=== PATIENT | male | born 1940 | race Caucasian/White ===

== ENCOUNTER 2018-05-01 11:38 | Inpatient (IN) | payer BC ==
[~2018-05-01] VITALS: Ht 177.8 cm; Wt 72.1 kg
[2018-05-01 11:43] VITALS: BP_SYST 91
[2018-05-01] MEDS ORDERED: NACL 0.9% 1,000 ML IV ONE (12:05)
[2018-05-01 12:53] LABS: HEMATOCRIT 42.4 % (36-54); HEMOGLOBIN 14.1 g/dL (14.0-18.0); MEAN CORPUSCULAR HEMOGLOBIN 30 pg (27-31); MEAN CORPUSCULAR HGB CONC 33 % (32-36); MEAN CORPUSCULAR VOLUME 89 fL (79.0-98.0); RED BLOOD CELL COUNT(AUTO) 4.76 MIL/uL (4.2-6.2); RED CELL DISTRIBUTION WIDTH 12.1 % (9.0-15.0); WHITE BLOOD COUNT (AUTO) 10.4 K/uL (4.8-10.8)
[2018-05-01 12:54] LABS: ANION GAP 13 (5-15); BASOPHILS % (AUTO) 0.5 % (0.0-2.0); CALCIUM 9.5 mg/dL (8.4-11.0); CHLORIDE 98 mmol/L (98-107); CREATININE 3.28 mg/dL (0.55-1.30); EOSINOPHILS % (AUTO) 0.7 % (0.0-4.0); GLUCOSE 147 mg/dL (70-99); LYMPHOCYTES % (AUTO) 9.4 % (20.5-51.5); NEUTROPHILS # (AUTO) 8.5 K/uL (1.8-7.7); NEUTROPHILS % (AUTO) 82.4 % (40.0-70.0); PLATELET COUNT (AUTO) 315 K/uL (130-430); POTASSIUM 4.3 mmol/L (3.5-5.1); SODIUM SERUM 136 mmol/L (136-145); UREA NITROGEN, BLOOD 58 mg/dL (8-21)
[2018-05-01 12:55] LABS: BASOPHILS # (AUTO) 0.1 K/uL (0.0-0.2); EOSINOPHILS # (AUTO) 0.1 K/uL (0.0-0.4); MONOCYTES # (AUTO) 0.7 K/uL (0.0-1.0)
[2018-05-01 12:58] LABS: ALANINE AMINOTRANSFERASE 20 U/L (12-78); ALBUMIN 3.2 g/dL (3.4-4.8); ASPARTATE AMINOTRANSFERASE 17 U/L (10-37); LIPASE 367 U/L (73-393); TOTAL BILIRUBIN 0.4 mg/dL (0.0-1.0)
[2018-05-01 14:25] LABS: BILIRUBIN,URINE 2+ (NEGATIVE); BLOOD, URINE NEGATIVE (NEGATIVE); CLARITY/URINE SL HAZY (CLEAR); COLOR,URINE AMBER (YELLOW); GLUCOSE,URINE NEGATIVE (NEGATIVE); KETONES,URINE 1+ (NEGATIVE); LEUKOCYTE ESTERASE ,URINE NEGATIVE (NEGATIVE); NITRITE, URINE NEGATIVE (NEGATIVE); PROTEIN URINE 1+ (NEGATIVE); UROBILINOGEN,URINE 0.2 (0.2-1.0)
[2018-05-01] MEDS ORDERED: BUDE6HFA INH (14:36)
[2018-05-01] MEDS ORDERED: BENA20TA2 PO (14:36)
[2018-05-01] MEDS ORDERED: GLIP5TAB13 PO (14:36)
[2018-05-01] MEDS ORDERED: LOVA20TA2 PO (14:43)
[2018-05-01] MEDS ORDERED: AMYL1CAP56 PO (14:43)
[2018-05-01] MEDS ORDERED: ALLO100T PO (14:43)
[2018-05-01] MEDS ORDERED: METF1000 PO (14:43)
[2018-05-01] MEDS ORDERED: HYDR-1189 PO (14:43)
[2018-05-01] MEDS ORDERED: NEU300 PO (14:43)
[2018-05-01] MEDS ORDERED: TEMA30CA5 PO (14:43)
[2018-05-01] MEDS ORDERED: BUPR75TA20 PO (14:43)
[2018-05-01] MEDS ORDERED: ALFU10TA19 PO (14:43)
[2018-05-01 14:53] LABS: BACTERIA,URINE FEW /HPF (None Seen); RBC,URINE 0-3 /HPF (0-3); WBC,URINE 0-3 /HPF (0-3)
[2018-05-01 14:55] LABS: MUCUS,URINE 1+ /LPF (None Seen)
[2018-05-01 15:35] VITALS: BP_SYST 126
[2018-05-01] MEDS ORDERED: METOCLOPRAMIDE HCL 10 MG/2 ML VIAL IVP PRN (16:00)
[2018-05-01] MEDS ORDERED: ONDANSETRON HCL 4 MG/2 ML VIAL IVP PRN (16:00)
[2018-05-01] MEDS: MORPHINE 2 MG/ML INJ. SYRINGE IVP PRN (17:00)
[2018-05-01] MEDS: D5NS 1,000 ML IV SCH (17:02)
[2018-05-01] MEDS ORDERED: DEXTROSE 50% JECT 50 ML DISP.SYRIN IVP PRN (17:15)
[2018-05-01 20:10] VITALS: BP_SYST 146
[2018-05-01] MEDS: MORPHINE 4 MG/ML INJ. SYRINGE IVP PRN (21:08)
[2018-05-01] MEDS: INSULIN REGULAR, HUMAN 100 UNITS/ML, 10 ML VIAL (novoLIN R) SUBCUT PRN (21:15)
[2018-05-02 00:05] VITALS: BP_SYST 152
[2018-05-02] MEDS: MORPHINE 4 MG/ML INJ. SYRINGE IVP PRN ×5 (01:25→21:08)
[2018-05-02] MEDS: D5NS 1,000 ML IV SCH ×3 (01:29→15:53)
[2018-05-02] MEDS: INSULIN REGULAR, HUMAN 100 UNITS/ML, 10 ML VIAL (novoLIN R) SUBCUT PRN ×2 (06:20→17:42)
[2018-05-02 06:57] LABS: BASOPHILS # (AUTO) 0.1 K/uL (0.0-0.2); EOSINOPHILS # (AUTO) 0.1 K/uL (0.0-0.4); HEMOGLOBIN 14.2 g/dL (14.0-18.0); RED CELL DISTRIBUTION WIDTH 12.1 % (9.0-15.0); WHITE BLOOD COUNT (AUTO) 9.4 K/uL (4.8-10.8)
[2018-05-02 07:07] LABS: ANION GAP 9 (5-15); CALCIUM 9.2 mg/dL (8.4-11.0); CHLORIDE 103 mmol/L (98-107); CREATININE 2.09 mg/dL (0.55-1.30); GLUCOSE 164 mg/dL (70-99); POTASSIUM 4.3 mmol/L (3.5-5.1); SODIUM SERUM 139 mmol/L (136-145); UREA NITROGEN, BLOOD 42 mg/dL (8-21)
[2018-05-02 07:16] LABS: ALANINE AMINOTRANSFERASE 17 U/L (12-78); ALBUMIN 3.1 g/dL (3.4-4.8); ASPARTATE AMINOTRANSFERASE 18 U/L (10-37); TOTAL BILIRUBIN 0.4 mg/dL (0.0-1.0)
[2018-05-02 07:21] LABS: BASOPHILS % (AUTO) 0.9 % (0.0-2.0); EOSINOPHILS % (AUTO) 1.2 % (0.0-4.0); HEMATOCRIT 41.6 % (36-54); LYMPHOCYTES # (AUTO) 1.2 K/uL (1.0-5.5); LYMPHOCYTES % (AUTO) 13.2 % (20.5-51.5); MEAN CORPUSCULAR HEMOGLOBIN 31 pg (27-31); MEAN CORPUSCULAR HGB CONC 34 % (32-36); MEAN CORPUSCULAR VOLUME 91 fL (79.0-98.0); MONOCYTES # (AUTO) 0.8 K/uL (0.0-1.0); MONOCYTES % (AUTO) 8.3 % (1.7-9.3); NEUTROPHILS # (AUTO) 7.2 K/uL (1.8-7.7); NEUTROPHILS % (AUTO) 76.4 % (40.0-70.0); PLATELET COUNT (AUTO) 354 K/uL (130-430); RED BLOOD CELL COUNT(AUTO) 4.59 MIL/uL (4.2-6.2)
[2018-05-02 08:00] VITALS: BP_SYST 132
[2018-05-02 12:30] VITALS: BP_SYST 132
[2018-05-02 16:25] VITALS: BP_SYST 146
[2018-05-02 20:00] VITALS: BP_SYST 136
[2018-05-03] VITALS (7 sets, daily range): BP systolic 134–162
[2018-05-03] MEDS: MORPHINE 4 MG/ML INJ. SYRINGE IVP PRN (01:29)
[2018-05-03] MEDS: D5NS 1,000 ML IV SCH ×3 (03:54→16:23)
[2018-05-03] MEDS: MORPHINE 2 MG/ML INJ. SYRINGE IVP PRN ×3 (05:07→16:16)
[2018-05-03] MEDS: INSULIN REGULAR, HUMAN 100 UNITS/ML, 10 ML VIAL (novoLIN R) SUBCUT PRN (06:36)
[2018-05-03 07:06] LABS: PROTHROMBIN TIME 10.3 SECS (9.5-12.5)
[2018-05-03] MEDS: fentaNYL CITRATE/PF 100 MCG/2 ML AMP ONE ×3 (07:27→07:32)
[2018-05-03] MEDS: MIDAZOLAM HCL 5 MG/5 ML VIAL ONE ×3 (07:27→07:34)
[2018-05-03] MEDS ORDERED: SIMETHICONE 40 MG/0.6 ML ML ONE (07:27)
[2018-05-03] MEDS ORDERED: BENZOCAINE 20% 0.5mL UD SPRAY MM ONE (10:45)
[2018-05-03] MEDS ORDERED: cloNIDine HCL 0.1 MG TABLET PO PRN (12:30)
== END 2018-05-03 21:27 | disposition home or self-care (01) | DRG 683 ==
LOC: SED 11:38 → SMU 15:05
PROVIDERS: ADMIT Internal Medicine Hospice and Palliative Medicine; ATTEND Internal Medicine Hospice and Palliative Medicine
PROC: 0DB68ZX Excision of Stomach, Via Natural or Artificial Opening Endoscopic, Diagnostic (ICD-10-PCS; principal; 2018-05-03 07:15)
DX: N17.0 Acute kidney failure with tubular necrosis (principal); K86.1 Other chronic pancreatitis; E46 Unspecified protein-calorie malnutrition; E11.9 Type 2 diabetes mellitus without complications; R10.9 Unspecified abdominal pain; J44.9 Chronic obstructive pulmonary disease, unspecified; K31.7 Polyp of stomach and duodenum; I10 Essential (primary) hypertension; E78.00 Pure hypercholesterolemia, unspecified; Z88.0 Allergy status to penicillin; Z79.899 Other long term (current) drug therapy; Z90.49 Acquired absence of other specified parts of digestive tract; Z68.22 Body mass index [BMI] 22.0-22.9, adult
CPT/HCPCS: 36415; 43239; 71045; 76700-TC; 80053; 81000-TC; 82787; 82962; 83605; 83690-TC; 85025; 85610-TC; 88305; 88312; 88313; 96360; 99285; J2250; J2270; J2405; J3010; J7042

== ENCOUNTER 2022-11-28 08:53 | Inpatient (IN) | payer BC ==
[~2022-11-28] VITALS: Ht 177.8 cm; Wt 84.8 kg
[~2022-11-28 08:53] MED LIST: ALFU10TA10 PO; ALLO100T PO; AMYL1CAP56 PO; BENA-6 PO; BUDE6HFA INH; BUPR75TA20 PO; GLIP5TAB13 PO; HYDR-3919 PO; LOVA20TA2 PO; METF1000 PO; NEU300 PO; TEMA30CA5 PO
[2022-11-28 08:55] VITALS: BP_SYST 137
[2022-11-28] MEDS ORDERED: methylPREDNISolone SOD SUCC/PF 62.5 MG/ML VIAL IVP ONE (09:00)
[2022-11-28] MEDS ORDERED: IPRATROPIUM/ALBUTEROL SULFATE 3 ML AMPUL.NEB (DUONEB) INH ONE (09:00)
[2022-11-28 09:33] LABS: BILIRUBIN,URINE NEGATIVE (NEGATIVE); BLOOD, URINE 3+ (NEGATIVE); CLARITY/URINE SL CLOUDY (CLEAR); COLOR,URINE YELLOW (YELLOW); GLUCOSE,URINE NEGATIVE (NEGATIVE); KETONES,URINE 1+ (NEGATIVE); LEUKOCYTE ESTERASE ,URINE 1+ (NEGATIVE); NITRITE, URINE POSITIVE (NEGATIVE); PH,URINE 6.5 (5.0-8.0); PROTEIN URINE 1+ (NEGATIVE); UROBILINOGEN,URINE 0.2 (0.2-1.0)
[2022-11-28 09:44] LABS: BACTERIA,URINE MANY /HPF (None Seen); MUCUS,URINE 1+ /LPF (None Seen)
[2022-11-28 09:47] LABS: ANION GAP 10 (5-15); CALCIUM 9.1 mg/dL (8.4-11.0); CHLORIDE 101 mmol/L (98-107); CREATININE 1.61 mg/dL (0.55-1.30); GLUCOSE 206 mg/dL (70-99); UREA NITROGEN, BLOOD 33 mg/dL (8-21)
[2022-11-28 09:54] LABS: ALANINE AMINOTRANSFERASE 39 U/L (12-78); ASPARTATE AMINOTRANSFERASE 23 U/L (10-37); TOTAL BILIRUBIN 1.2 mg/dL (0.0-1.0)
[2022-11-28] MEDS ORDERED: cefTRIAXone 1 GM VIAL ONE (10:41)
[2022-11-28] MEDS ORDERED: OSELTAMIVIR PHOSPHATE 75 MG CAPSULE PO ONE (10:45)
[2022-11-28] MEDS ORDERED: NACL 0.9% 1,000 ML IV ONE (10:45)
[2022-11-28] MEDS ORDERED: cefTRIAXone 1 GM in D5W 50 ML IV ONE (10:45)
[2022-11-28 10:58] LABS: BASOPHILS % (AUTO) 0.1 % (0.0-2.0); EOSINOPHILS % (AUTO) 0.1 % (0.0-4.0); HEMATOCRIT 43.4 % (36-54); HEMOGLOBIN 14.8 g/dL (14.0-18.0); LYMPHOCYTES # (AUTO) 0.6 K/uL (1.0-5.5); LYMPHOCYTES % (AUTO) 3.7 % (20.5-51.5); MEAN CORPUSCULAR HEMOGLOBIN 31 pg (27-31); MEAN CORPUSCULAR HGB CONC 34 % (32-36); MEAN CORPUSCULAR VOLUME 92 fL (79.0-98.0); MONOCYTES # (AUTO) 1.2 K/uL (0.0-1.0); MONOCYTES % (AUTO) 6.8 % (1.7-9.3); NEUTROPHILS # (AUTO) 15.6 K/uL (1.8-7.7); NEUTROPHILS % (AUTO) 89.3 % (40.0-70.0); PLATELET COUNT (AUTO) 125 K/uL (130-430); RED BLOOD CELL COUNT(AUTO) 4.72 MIL/uL (4.2-6.2); RED CELL DISTRIBUTION WIDTH 14.2 % (9.0-15.0); WHITE BLOOD COUNT (AUTO) 17.5 K/uL (4.8-10.8)
[2022-11-28 12:00] VITALS: BP_SYST 137
[2022-11-28] MEDS ORDERED: ACETAMINOPHEN 325 MG TABLET PO PRN ×2 (12:15→12:45)
[2022-11-28] MEDS ORDERED: ONDANSETRON HCL 4 MG/2 ML VIAL IVP PRN (12:15)
[2022-11-28] MEDS ORDERED: HYDROcodone/ACETAMIN 5-325 MG TAB (NORCO/ VICODIN) PO PRN (12:15)
[2022-11-28] MEDS ORDERED: NALOXONE HCL 0.4 MG/ML AMP (NARCAN) IVP PRN ×2 (12:15)
[2022-11-28] MEDS: D5/0.45 NS 1,000 ML IV SCH ×2 (12:57→22:13)
[2022-11-28] MEDS ORDERED: IPRA3AMP9 INH (13:28)
[2022-11-28] MEDS ORDERED: OMEP40CA20 PO (13:28)
[2022-11-28] MEDS ORDERED: MULT-1117 PO (13:28)
[2022-11-28] MEDS ORDERED: IRBE150T48 PO (13:28)
[2022-11-28] MEDS ORDERED: AMLO2.5T2 PO (13:28)
[2022-11-28 14:18] VITALS: BP_SYST 139
[2022-11-28] MEDS: AZITHROMYCIN 500 MG in NS 250 ML IV SCH (15:43)
[2022-11-28] MEDS: buPROPion HCL 75 MG TABLET PO SCH ×2 (15:43→22:11)
[2022-11-28] MEDS: cefTRIAXone 1 GM IVPB PREMIX 50 ML IV SCH (15:43)
[2022-11-28] MEDS: INSULIN REGULAR, HUMAN 100 UNITS/ML, 3 ML VIAL (humuLIN R) SUBCUT PRN ×2 (17:10→22:15)
[2022-11-28 21:00] VITALS: BP_SYST 137
[2022-11-28] MEDS ORDERED: BENAZEPRIL HCL 20 MG TABLET (LOTENSIN) PO SCH (21:00)
[2022-11-28] MEDS ORDERED: GABAPENTIN 300 MG CAPSULE PO SCH (21:00)
[2022-11-28] MEDS ORDERED: LOVASTATIN 20 MG TABLET PO SCH (21:00)
[2022-11-28] MEDS: IPRATROPIUM BROM 0.5 MG/2.5 ML VIAL.NEB (ATROVENT) INH SCH ×2 (21:39→23:29)
[2022-11-28] MEDS: ALBUTEROL SULFATE 0.083% 2.5 MG/3 ML VIAL.NEB INH SCH ×2 (21:39→23:28)
[2022-11-28] MEDS: METHYLPREDNISOLONE SOD SUCC 40 MG/ML VIAL IVP SCH (22:10)
[2022-11-28] MEDS: GABAPENTIN 300 MG CAPSULE PO SCH (22:10)
[2022-11-28] MEDS: ATORVASTATIN 10 MG TABLET PO SCH (22:11)
[2022-11-28] MEDS: TEMAZEPAM 15 MG CAPSULE PO SCH (22:11)
[2022-11-28] MEDS: lisinopriL 20 MG TABLET PO SCH (22:12)
[2022-11-29] MEDS: ALBUTEROL SULFATE 0.083% 2.5 MG/3 ML VIAL.NEB INH SCH ×4 (04:04→15:57)
[2022-11-29] MEDS: IPRATROPIUM BROM 0.5 MG/2.5 ML VIAL.NEB (ATROVENT) INH SCH ×4 (04:04→15:57)
[2022-11-29 04:37] VITALS: BP_SYST 104
[2022-11-29] MEDS: INSULIN REGULAR, HUMAN 100 UNITS/ML, 3 ML VIAL (humuLIN R) SUBCUT PRN ×4 (06:13→21:15)
[2022-11-29 06:35] LABS: BASOPHILS % (AUTO) 0.1 % (0.0-2.0); HEMATOCRIT 36.6 % (36-54); HEMOGLOBIN 12.6 g/dL (14.0-18.0); LYMPHOCYTES # (AUTO) 0.5 K/uL (1.0-5.5); LYMPHOCYTES % (AUTO) 2.8 % (20.5-51.5); MEAN CORPUSCULAR HEMOGLOBIN 31 pg (27-31); MEAN CORPUSCULAR HGB CONC 35 % (32-36); MEAN CORPUSCULAR VOLUME 90 fL (79.0-98.0); MONOCYTES # (AUTO) 0.5 K/uL (0.0-1.0); MONOCYTES % (AUTO) 3.3 % (1.7-9.3); NEUTROPHILS # (AUTO) 15.1 K/uL (1.8-7.7); NEUTROPHILS % (AUTO) 93.8 % (40.0-70.0); PLATELET COUNT (AUTO) 129 K/uL (130-430); RED BLOOD CELL COUNT(AUTO) 4.06 MIL/uL (4.2-6.2); RED CELL DISTRIBUTION WIDTH 14.3 % (9.0-15.0); WHITE BLOOD COUNT (AUTO) 16.1 K/uL (4.8-10.8)
[2022-11-29 07:12] LABS: ALANINE AMINOTRANSFERASE 31 U/L (12-78); ANION GAP 9 (5-15); ASPARTATE AMINOTRANSFERASE 16 U/L (10-37); CALCIUM 8.4 mg/dL (8.4-11.0); CHLORIDE 102 mmol/L (98-107); CREATININE 1.83 mg/dL (0.55-1.30); GLUCOSE 229 mg/dL (70-99); PHOSPHORUS 2.5 mg/dL (2.7-4.5); TOTAL BILIRUBIN 0.4 mg/dL (0.0-1.0); UREA NITROGEN, BLOOD 40 mg/dL (8-21)
[2022-11-29 08:00] VITALS: BP_SYST 101
[2022-11-29] MEDS ORDERED: NON-FORMULARY MEDICATION (Alfuzosin Hcl 10 MG) PO SCH (09:00)
[2022-11-29] MEDS: LIPASE/PROTEASE/AMYLASE 1 CAP PO SCH ×4 (09:51→21:11)
[2022-11-29] MEDS: GABAPENTIN 300 MG CAPSULE PO SCH ×3 (09:51→21:12)
[2022-11-29] MEDS: ALLOPURINOL 100 MG TABLET (ZYLOPRIM) PO SCH (09:52)
[2022-11-29] MEDS: buPROPion HCL 75 MG TABLET PO SCH ×3 (09:52→21:11)
[2022-11-29] MEDS: D5/0.45 NS 1,000 ML IV SCH ×2 (09:53→17:02)
[2022-11-29] MEDS: METHYLPREDNISOLONE SOD SUCC 40 MG/ML VIAL IVP SCH ×2 (10:31→21:11)
[2022-11-29 12:20] VITALS: BP_SYST 131
[2022-11-29] MEDS: cefTRIAXone 1 GM IVPB PREMIX 50 ML IV SCH (15:28)
[2022-11-29] MEDS: AZITHROMYCIN 500 MG in NS 250 ML IV SCH (15:29)
[2022-11-29] MEDS ORDERED: BENZONATATE 100 MG CAPSULE (TESSALON) PO PRN (15:30)
[2022-11-29 15:45] VITALS: BP_SYST 143
[2022-11-29] MEDS: IPRATROPIUM/ALBUTEROL SULFATE 3 ML AMPUL.NEB (DUONEB) INH SCH ×2 (19:16→23:00)
[2022-11-29 20:05] VITALS: BP_SYST 144
[2022-11-29] MEDS: OSELTAMIVIR PHOSPHATE 6 MG/1 ML, 60 ML SUSP PO SCH (21:12)
[2022-11-29] MEDS: lisinopriL 20 MG TABLET PO SCH (21:13)
[2022-11-29] MEDS: TEMAZEPAM 15 MG CAPSULE PO SCH (21:13)
[2022-11-29] MEDS: ATORVASTATIN 10 MG TABLET PO SCH (21:13)
[2022-11-30 00:10] VITALS: BP_SYST 108
[2022-11-30] MEDS: IPRATROPIUM/ALBUTEROL SULFATE 3 ML AMPUL.NEB (DUONEB) INH SCH ×5 (03:00→19:38)
[2022-11-30] MEDS: D5/0.45 NS 1,000 ML IV SCH ×2 (03:15→16:45)
[2022-11-30] MEDS: LIPASE/PROTEASE/AMYLASE 1 CAP PO SCH ×4 (06:28→21:11)
[2022-11-30] MEDS: INSULIN REGULAR, HUMAN 100 UNITS/ML, 3 ML VIAL (humuLIN R) SUBCUT PRN ×4 (06:30→21:09)
[2022-11-30] MEDS: IPRATROPIUM BROM 0.5 MG/2.5 ML VIAL.NEB (ATROVENT) INH SCH ×3 (07:00→19:00)
[2022-11-30] MEDS: ALBUTEROL SULFATE 0.083% 2.5 MG/3 ML VIAL.NEB INH SCH ×3 (07:00→19:00)
[2022-11-30 07:37] LABS: ALANINE AMINOTRANSFERASE 34 U/L (12-78); ALBUMIN 3.3 g/dL (3.4-4.8); ANION GAP 10 (5-15); ASPARTATE AMINOTRANSFERASE 21 U/L (10-37); CALCIUM 8.7 mg/dL (8.4-11.0); CHLORIDE 100 mmol/L (98-107); GLUCOSE 168 mg/dL (70-99); PHOSPHORUS 4.4 mg/dL (2.7-4.5); TOTAL BILIRUBIN 0.3 mg/dL (0.0-1.0); UREA NITROGEN, BLOOD 53 mg/dL (8-21)
[2022-11-30 07:49] LABS: BASOPHILS # (AUTO) 0.1 K/uL (0.0-0.2); BASOPHILS % (AUTO) 0.2 % (0.0-2.0); EOSINOPHILS % (AUTO) 0.2 % (0.0-4.0); HEMATOCRIT 39.2 % (36-54); HEMOGLOBIN 13.1 g/dL (14.0-18.0); LYMPHOCYTES # (AUTO) 0.9 K/uL (1.0-5.5); LYMPHOCYTES % (AUTO) 4.3 % (20.5-51.5); MEAN CORPUSCULAR HEMOGLOBIN 31 pg (27-31); MEAN CORPUSCULAR HGB CONC 34 % (32-36); MEAN CORPUSCULAR VOLUME 92 fL (79.0-98.0); MONOCYTES # (AUTO) 1.2 K/uL (0.0-1.0); MONOCYTES % (AUTO) 5.9 % (1.7-9.3); NEUTROPHILS # (AUTO) 18.7 K/uL (1.8-7.7); NEUTROPHILS % (AUTO) 89.4 % (40.0-70.0); PLATELET COUNT (AUTO) 166 K/uL (130-430); RED BLOOD CELL COUNT(AUTO) 4.25 MIL/uL (4.2-6.2); RED CELL DISTRIBUTION WIDTH 14.4 % (9.0-15.0); WHITE BLOOD COUNT (AUTO) 20.9 K/uL (4.8-10.8)
[2022-11-30 08:00] VITALS: BP_SYST 112
[2022-11-30] MEDS: GABAPENTIN 300 MG CAPSULE PO SCH ×3 (10:31→21:10)
[2022-11-30] MEDS: METHYLPREDNISOLONE SOD SUCC 40 MG/ML VIAL IVP SCH (10:31)
[2022-11-30] MEDS: ALLOPURINOL 100 MG TABLET (ZYLOPRIM) PO SCH (10:32)
[2022-11-30] MEDS: buPROPion HCL 75 MG TABLET PO SCH ×3 (10:32→21:10)
[2022-11-30] MEDS: OSELTAMIVIR PHOSPHATE 6 MG/1 ML, 60 ML SUSP PO SCH ×2 (10:32→21:11)
[2022-11-30 12:10] VITALS: BP_SYST 113
[2022-11-30] MEDS: ALBUMIN HUMAN 25% 50 ML IV SCH ×2 (12:48→16:43)
[2022-11-30 15:20] VITALS: BP_SYST 143
[2022-11-30] MEDS: AZITHROMYCIN 500 MG in NS 250 ML IV SCH (16:43)
[2022-11-30] MEDS: cefTRIAXone 1 GM IVPB PREMIX 50 ML IV SCH (16:43)
[2022-11-30 20:08] VITALS: BP_SYST 144
[2022-11-30 20:09] VITALS: BP_SYST 144
[2022-11-30] MEDS: TEMAZEPAM 15 MG CAPSULE PO SCH (21:10)
[2022-11-30] MEDS: ATORVASTATIN 10 MG TABLET PO SCH (21:10)
[2022-11-30] MEDS: lisinopriL 20 MG TABLET PO SCH (21:11)
[2022-12-01 02:04] VITALS: BP_SYST 146
[2022-12-01] MEDS: IPRATROPIUM BROM 0.5 MG/2.5 ML VIAL.NEB (ATROVENT) INH SCH ×4 (03:00→15:00)
[2022-12-01] MEDS: IPRATROPIUM/ALBUTEROL SULFATE 3 ML AMPUL.NEB (DUONEB) INH SCH ×4 (03:00→15:18)
[2022-12-01] MEDS: D5/0.45 NS 1,000 ML IV SCH ×2 (05:29→14:29)
[2022-12-01] MEDS: INSULIN REGULAR, HUMAN 100 UNITS/ML, 3 ML VIAL (humuLIN R) SUBCUT PRN ×2 (06:31→12:23)
[2022-12-01] MEDS: LIPASE/PROTEASE/AMYLASE 1 CAP PO SCH ×3 (06:31→17:49)
[2022-12-01] MEDS: ALBUTEROL SULFATE 0.083% 2.5 MG/3 ML VIAL.NEB INH SCH ×3 (07:00→15:00)
[2022-12-01 07:09] LABS: BASOPHILS % (AUTO) 0.1 % (0.0-2.0); EOSINOPHILS % (AUTO) 0.1 % (0.0-4.0); HEMATOCRIT 36.5 % (36-54); HEMOGLOBIN 12.6 g/dL (14.0-18.0); LYMPHOCYTES # (AUTO) 0.7 K/uL (1.0-5.5); LYMPHOCYTES % (AUTO) 7.5 % (20.5-51.5); MEAN CORPUSCULAR HEMOGLOBIN 31 pg (27-31); MEAN CORPUSCULAR HGB CONC 35 % (32-36); MEAN CORPUSCULAR VOLUME 91 fL (79.0-98.0); MONOCYTES # (AUTO) 0.7 K/uL (0.0-1.0); MONOCYTES % (AUTO) 8.1 % (1.7-9.3); NEUTROPHILS # (AUTO) 7.4 K/uL (1.8-7.7); NEUTROPHILS % (AUTO) 84.2 % (40.0-70.0); PLATELET COUNT (AUTO) 149 K/uL (130-430); RED BLOOD CELL COUNT(AUTO) 4.02 MIL/uL (4.2-6.2); RED CELL DISTRIBUTION WIDTH 14.3 % (9.0-15.0); WHITE BLOOD COUNT (AUTO) 8.8 K/uL (4.8-10.8)
[2022-12-01 07:39] LABS: ANION GAP 9 (5-15); CALCIUM 8.6 mg/dL (8.4-11.0); CHLORIDE 106 mmol/L (98-107); CREATININE 1.65 mg/dL (0.55-1.30); GLUCOSE 181 mg/dL (70-99); UREA NITROGEN, BLOOD 36 mg/dL (8-21)
[2022-12-01 08:00] VITALS: BP_SYST 156
[2022-12-01] MEDS: buPROPion HCL 75 MG TABLET PO SCH ×2 (08:32→15:38)
[2022-12-01] MEDS: ALLOPURINOL 100 MG TABLET (ZYLOPRIM) PO SCH (08:33)
[2022-12-01] MEDS: GABAPENTIN 300 MG CAPSULE PO SCH ×2 (08:33→15:38)
[2022-12-01] MEDS ORDERED: predniSONE 20 MG TABLET PO SCH (09:00)
[2022-12-01] MEDS ORDERED: LIDOCAINE TOPICAL OINT 5%, 35 GM TP PRN (09:45)
[2022-12-01] MEDS ORDERED: POLYETHYLENE GLYCOL 3350, 17 GM/ POWD.PACK PO ONE (10:00)
[2022-12-01] MEDS: OSELTAMIVIR PHOSPHATE 6 MG/1 ML, 60 ML SUSP PO SCH (10:21)
[2022-12-01] MEDS: HYDROcodone/ACETAMIN 10-325 MG TAB PO PRN ×2 (10:27→14:39)
[2022-12-01 12:00] VITALS: BP_SYST 142
[2022-12-01] MEDS: cefTRIAXone 1 GM IVPB PREMIX 50 ML IV SCH (13:28)
[2022-12-01] MEDS: AZITHROMYCIN 500 MG in NS 250 ML IV SCH (14:23)
[2022-12-01 16:16] VITALS: BP_SYST 148
[2022-12-01] MEDS ORDERED: LEVO250T73 PO (16:33)
[2022-12-01] MEDS ORDERED: OSEL6SUS4 PO (16:33)
[2022-12-01] MEDS ORDERED: PRED20TA PO (16:33)
[2022-12-01 17:40] VITALS: BP_SYST 148
[2022-12-02] MEDS ORDERED: POLYETHYLENE GLYCOL 3350, 17 GM/ POWD.PACK PO SCH (09:00)
== END 2022-12-01 18:20 | disposition home or self-care (01) | DRG 871 ==
LOC: SED 08:53 → STU 11:05
PROVIDERS: ADMIT Specialist; ATTEND Specialist
DX: A41.9 Sepsis, unspecified organism (principal); J10.01 Influenza due to other identified influenza virus with the same other identified influenza virus pneumonia; J96.01 Acute respiratory failure with hypoxia; N39.0 Urinary tract infection, site not specified; N17.9 Acute kidney failure, unspecified; J44.0 Chronic obstructive pulmonary disease with (acute) lower respiratory infection; J44.1 Chronic obstructive pulmonary disease with (acute) exacerbation; E78.00 Pure hypercholesterolemia, unspecified; E11.65 Type 2 diabetes mellitus with hyperglycemia; D69.6 Thrombocytopenia, unspecified; J10.1 Influenza due to other identified influenza virus with other respiratory manifestations; J20.9 Acute bronchitis, unspecified; G89.29 Other chronic pain; E78.5 Hyperlipidemia, unspecified; B96.20 Unspecified Escherichia coli [E. coli] as the cause of diseases classified elsewhere; E11.22 Type 2 diabetes mellitus with diabetic chronic kidney disease; Z20.822 Contact with and (suspected) exposure to COVID-19; I12.9 Hypertensive chronic kidney disease with stage 1 through stage 4 chronic kidney disease, or unspecified chronic kidney disease; Z79.899 Other long term (current) drug therapy; Z88.0 Allergy status to penicillin
CPT/HCPCS: 36415; 71045; 74018; 76770; 80048; 80053; 81000; 82570; 82962; 83605; 83735; 83880; 84100; 84302; 84484; 85025; 87040; 87086; 93005; 94640; 94760; 96361; 96365; 96375; 97110-GP; 97116-GP; 97163-GP; 97530-GP; 99291; G0378; G9035; J0456; J0696; J1030; J1815; J2930; J7050; J7060; J7512; J7613; P9046